=== PATIENT | male | born 1935 | race Caucasian/White ===

== ENCOUNTER 2017-08-10 12:43 | Inpatient (IN) | payer MEDICARE, BC ==
--- NOTE | 2017-07-28 18:22 | HP ---
HISTORY AND PHYSICAL: DATE OF OFFICE VISIT: 07/28/17 DATE OF SURGERY: 08/10/17 ATTENDING SURGEON: Dr. Tavia Lambert * (DICTATED BY ESE DOSHI) PROCEDURE: Right total hip arthroplasty. CHIEF COMPLAINT: Right hip pain. HISTORY OF PRESENT ILLNESS: Mr. Randle is an 82-year-old gentleman with complaints of right hip pain secondary to end-stage osteoarthritis. He has failed conservative management and has elected to proceed with a right total hip arthroplasty, which is scheduled for 08/10/[address] Lambert. PAST MEDICAL HISTORY: Prostate cancer, hypothyroidism, hypertension, anxiety, depression, high cholesterol, dementia, sleep apnea, and a history of hepatitis infection, unknown. PAST SURGICAL HISTORY: Tonsillectomy and surgery for urethral strictures. CURRENT MEDICATIONS: 1. Vitamin D. 2. Levothyroxine 50 mcg daily. 3. Vitamin B 12. 4. Bisoprolol/hydrochlorothiazide 5/6.25 mg daily. ALLERGIES: SULFA antibiotics. FAMILY HISTORY: Diabetes, hypertension, stroke, and Alzheimer's. SOCIAL HISTORY: He is an 82-year-old gentleman who lives with his . He is a retired dentist. He does not smoke, use drugs or alcohol. REVIEW OF SYSTEMS: A complete 14-point review of systems was reviewed with the patient, it is positive for hypothyroidism, history of hepatitis, sleep apnea. He denies history of DVT, PE, HIV or MRSA. PHYSICAL EXAMINATION GENERAL: Well developed, well nourished, in no acute distress. VITAL SIGNS: He stands 5 feet 10 inches tall, weighs 190 pounds. Blood pressure 134/75. His heart rate is 68. HEENT: Normocephalic, atraumatic. NECK: Supple. No palpable lymph nodes. PULMONARY: The lungs are clear to auscultation bilaterally. CARDIAC: Regular rate and rhythm. Strong S1 and S2. ABDOMEN: Soft, nontender, nondistended. MUSCULOSKELETAL: Right lower extremity: The skin is intact. There are no open wounds or abrasions. He walks with an antalgic-type gait, favoring his right leg. He has decreased internal and external rotation of the right hip. He has 2+ dorsalis pedis pulses. His lower extremity muscle group strengths are intact at 5/5 and he has intact sensation. NEUROLOGICAL: Alert and oriented x3. Cranial nerves II thorough XII are intact. ASSESSMENT AND PLAN: Mr. Randle is an 82-year-old gentleman with complaints of right hip pain secondary to end-stage osteoarthritis. He has failed conservative management and has elected to proceed with a right total hip arthroplasty, which is scheduled for 08/10/[address] Lambert discussed the risks and benefits of the surgery at today's visit and all of his questions were answered. Coumadin, Colace, and Percocet were sent to his pharmacy for postoperative pain control and DVT prophylaxis. Following the surgery, he plans to go to [facility] for inpatient rehabilitation and follow up with Dr. Lambert 2 weeks after the surgery. ESE DOSHI [id number]/CPS #: [id number] MTDD
[~2017-08-10 12:43] MED LIST: Buffered Lidocaine 0.9% SYRIN* 5 ML/SYR SYRINGE INTRADERM ONE; Buffered Lidocaine 0.9% SYRIN* 5 ML/SYR SYRINGE ONE; ceFAZolin 2 GM PREMIX (*) 2 GM/50 ML BAG IVPB ONE
[2017-08-10] MEDS ORDERED: Ondansetron TAB* 4 MG PO PRN (14:03)
[2017-08-10] MEDS ORDERED: Bisacodyl SUPP* 10 MG SUPP PR PRN (14:03)
[2017-08-10] MEDS ORDERED: diPHENhydraMINE IV* 50 MG/ML 1 ml VIAL (BENADRYL) IV PRN (14:03)
[2017-08-10] MEDS ORDERED: oxyCODONE/Acetamin 5/325 MG* TAB PO PRN (14:03)
[2017-08-10] MEDS ORDERED: Ondansetron INJ* 2 MG/ML VIAL IV PRN ×2 (14:03→17:28)
[2017-08-10] MEDS ORDERED: oxyCODONE TAB* 5 MG TAB PO PRN (14:03)
[2017-08-10] MEDS ORDERED: Morphine INJ* 2 MG/ML 1 ML SYRINGE (TWO MG - NEW SYRINGE VERSION) IV PRN (14:03)
[2017-08-10] MEDS ORDERED: Polyethylene Glycol 3350* 17 GM PACKET PO PRN (14:03)
[2017-08-10] MEDS ORDERED: fentaNYL* 50 MCG/ML 2 ML VIAL (100 MCG VIAL) ONE (15:10)
[2017-08-10] MEDS ORDERED: Midazolam* 1 MG/ML 2 ML VIAL (2 MG) ONE ×2 (15:10→15:54)
[2017-08-10] MEDS ORDERED: Famotidine IV* 10 MG/ML 2 ML (20 mg) ONE (15:10)
[2017-08-10] MEDS ORDERED: Bupivacaine 0.5% SDV PF* 30 ML VIAL ONE ×2 (15:11→16:17)
[2017-08-10] MEDS ORDERED: Propofol* 10 MG/ML 20 ML BTL IV PUSH ONE (16:45)
[2017-08-10] MEDS ORDERED: EPHEDrine (Pressors)* 50 MG/ML VIAL ONE (16:45)
[2017-08-10] MEDS ORDERED: Phenylephrine IV* 40 MCG/ML 10 ML SYRINGE ONE (16:46)
[2017-08-10] MEDS ORDERED: Lidocaine 2% PF * 5 ML VIAL ONE (16:46)
--- NOTE | 2017-08-10 17:21 | RAD ---
INDICATION: ] Total hyperflexion COMPARISON: June 02, 2017 TECHNIQUE: Crosstable image of the right hip is submitted FINDINGS: The single image obtained for sizing shows placement acetabular cup and the femoral stem for sizing. The remaining bony detail is limited given crosstable lateral technique. IMPRESSION: OPERATIVE CONTROL FILMS SHOW INITIATION OF RIGHT HIP BREATH PLASTY.
[2017-08-10] MEDS ORDERED: PROCHLORPERAZINE INJ 5 MG/ML 2 ML VIAL IV PRN (17:28)
[2017-08-10] MEDS ORDERED: Acetaminophen TAB* 325 MG PO PRN (17:28)
[2017-08-10] MEDS ORDERED: fentaNYL* 50 MCG/ML 2 ML VIAL (100 MCG VIAL) IV PRN (17:28)
--- NOTE | 2017-08-10 18:50 | RAD ---
INDICATION: Postoperative right hip arthroplasty COMPARISON: Right hip June 04, 2017 TECHNIQUE: An AP view of the pelvis and AP views of the hip in neutral and abducted position were obtained FINDINGS: There is interval right hip arthroplasty. The prosthesis appears normally seated. There are soft tissue changes consistent with recent surgery. IMPRESSION: POSTOPERATIVE RIGHT HIP ARTHROPLASTY.
--- NOTE | 2017-08-10 18:51 | RAD ---
INDICATION: Right hip arthroplasty COMPARISON: Right hip same date TECHNIQUE: A single AP view of the pelvis is submitted. FINDINGS: There is right hip arthroplasty. Both acetabula and femoral components appear well seated. The SI joints and symphysis are intact. IMPRESSION: RIGHT HIP ARTHROPLASTY.
[2017-08-10] MEDS ORDERED: Warfarin TAB(*) 6 MG PO ONE (21:15)
[2017-08-10] MEDS: Docusate CAP* 100 MG PO SCH (21:52)
[2017-08-10] MEDS: oxyCODONE/Acetamin 5/325 MG* TAB PO PRN (21:52)
[2017-08-10] MEDS: Magnesium Hydroxide LIQ* 30 ML UDC PO PRN (21:56)
[2017-08-10] MEDS: ceFAZolin 1 GM in Dextrose (*) 1 GM/50 ML BAG IVPB SCH (23:22)
--- NOTE | 2017-08-11 00:25 | CONS ---
CC: Dr. Lambert; Dr. Awad * CONSULTATION REPORT: DATE OF CONSULT: 08/10/17 Requesting Physician: Dr. Lambert Consulting Physician: Dr. Ginger Dunn (dictation provided by Jamila Landa NP) HISTORY OF PRESENT ILLNESS: Mr. Randle is an 82-year-old male with a past medical history of right hip osteoarthritis who presented to the hospital today for a planned right total hip replacement with Dr. Lambert. Please see dictated H and P from ESE Ocampo, for complete details. In brief, this patient had ongoing pain in his right hip and failed conservative measures, therefore opted for a right total hip replacement. In the postoperative period, patient is doing well. Hospital Medicine was contacted for consult of comorbidities. Mr. Randle states that he is doing well and in no pain at this time. PAST MEDICAL HISTORY: 1. Prostate cancer. 2. Hypothyroid. 3. Hypertension. 4. Anxiety. 5. Depression. 6. High cholesterol. 7. Dementia. 8. Sleep apnea. PAST SURGICAL HISTORY: Tonsillectomy and urethral strictures, he had a TURP procedure done in 2013. Cataract left eye, shoulder arthroscopy, right rotator cuff repair and polypectomy of the rectum. MEDICATIONS: 1. Levothyroxine 50 mcg p.o. q.a.m. 2. Bisoprolol and hydrochlorothiazide 1 tablet q.a.m. 3. B12, 1000 mcg capsule q.a.m. 4. Vitamin D3, 2000 units p.o. q.a.m. ALLERGIES: SULFA DRUGS. FAMILY HISTORY: Coronary artery disease with his mother, coronary artery disease with father, diabetes mother, Alzheimer disease father. Cancer with brother, he had leukemia. SOCIAL HISTORY: Former Smoker, Denies alcohol use, Denies drug use. REVIEW OF SYSTEMS: General: No fever, no chills. Cardiac: No chest pain. No edema. Respiratory: No cough, no shortness of breath. GI: No nausea, vomiting, diarrhea or abdominal pain. : No gross hematuria. Neuro: No focal weakness. Eyes: No visual complaints. ENT: No dysphagia. Skin: No rash. Psych: No depression or anxiety. PHYSICAL EXAM: Vital Sings: Temp 96.8, blood pressure was 120/60, heart rate 56, respirations 16, O2 sat is 100% on 3 L O2 via nasal cannula. General: The patient was found resting in his bed. Opened eyes to verbal command. He has no acute distress. Denies any pain at this time. Mr. Randle is confused to time. He is alert and oriented to person and place. He is able to move his upper extremities, has minimal movement of lower extremities due to the spinal he had for his surgery. Eyes: Extraocular movements are intact. Heart: S1, S2 , no murmurs, rubs, gallops and is regular rhythm. Lungs: Clear throughout to auscultation. No accessory muscle use. Abdomen: Soft, nontender, bowel sounds positive x4. Extremities: Pedal pulses +2 bilaterally. No cyanosis or edema. Skin: Intact. DIAGNOSTIC STUDIES/LAB DATA: Preoperative labs were drawn on 07/28/17. Sodium is 135, potassium is 4.5, chloride is 99, BUN is 19, creatinine is 1.0. Glucose was 103, calcium is 10.3, TSH was 1.39, iron was 33, ferritin was 203.9. WBC 10.3, hemoglobin was 14.9, hematocrit of 43, platelet count was 390, 000. IMPRESSION AND PLAN: Mr. Randle is an 82-year-old male with a past medical history of prostate cancer, hypothyroid, hypertension, anxiety, depression, high cholesterol, dementia, sleep apnea who presented today to the hospital for a planned right total hip replacement. In the immediate postoperative period, he has no complaints and is doing well. Our recommendations are as follows: 1. Status post right total hip replacement: Management, we will leave to Ortho. 2. Hypothyroid: We will continue his levothyroxine at 50 mcg p.o. q.a.m. We will restart that in the a.m. 3. Hypertension: We will hold his hydrochlorothiazide at this time. Will order just the beta tamia. 4. Anxiety: We will continue to monitor. 5. Depression: Continue to monitor. 6. Dementia: Family has requested to stay with the patient during the night. Nursing staff has been advised that this is okay due to the fact that patient in 2003 had an exacerbation of dementia after his TURP procedure, where he became severely confused and disoriented. Will also hold Benadryl. 7. Sleep apnea: We will monitor pulse ox 24 hours a day. 8. DVT prophylaxis: Per Ortho. 9. Code status: The patient is a DNR/DNI. TIME SPENT: Approximately 45 minutes was spent in the consultation of this patient. More than half the time was spent with the patient and family at the bedside discussing plan during hospitalization, performing physical exam and reviewing my plan of care. JAMILA LANDA, WIL [id number]/CPS #: [id number] GENI
[2017-08-11] MEDS: oxyCODONE/Acetamin 5/325 MG* TAB PO PRN (02:56)
--- NOTE | 2017-08-11 05:31 | OP ---
OPERATIVE REPORT: DATE OF OPERATION: 08/10/17 DATE OF : 33 SURGEON: Tavia Lambert MD CONVE[employer]OR [employer]: ESE Nesbitt Ms. Leyva did help throughout the procedure with preparation of the leg, wound retraction, manipula tion of the hip, and wound closure. ANESTHESIOLOGIST: Alisson Sadler MD ANESTHESIA: Spinal. PRE-OP DIAGNOSIS: Severe end-stage degenerative osteoarthritis of the right hip joint. POST-OP DIAGNOSIS: Severe end-stage degenerative osteoarthritis of the right hip joint. OPERATIVE PROCEDURE: Right total hip arthroplasty. INDICATIONS: Mr. Randle is an 82-year-old gentleman with years of increasingly severe right hip pain. Radiograph showed [id number] arthritis. He failed conservative treatment with antiinflammatories , pain medication, ambulatory assistive devices, and physical therapy. Due to continued pain and dec reased quality of life, the patient has elected to proceed with right total hip arthroplasty. Informed consent was obtained from the patient and his . They understood the risks of the proced ure included, but were not limited to, bleeding, infection, damage to nearby structures, continued pa in, need for further surgery, intraoperative fracture, nerve palsy, hardware failure or loosening, di slocation, leg length discrepancy, stroke, heart attack, blood clot, and . They wished to proce ed. HARDWARE USED: This is a uncemented Maurilio total hip arthroplasty hardware. For the cup, a Tritani um cluster hole shell 54E with a single 20-mm and single 25-mm cancellous bone screw. For the liner, an MDM cementless liner 42E. For the stem, an Accolade TMZF size 4.5 with 127-degree neck. For the head, a Biolox delta ceramic V40 femoral head 28, -2.7 and for the insert, a mormonism MDM X3 inse rt 28/48/42E. ESTIMATED BLOOD LOSS: 400 cc. COMPLICATIONS: None. SPECIMEN: Femoral head and acetabular reaming sent to Pathology. INTRAOPERATIVE FINDINGS: Intraoperatively, the patient was noted to have severe end-stage arthritis with full-thickness loss of cartilage along the femoral head and acetabulum. Significant osteophyte formation was noted. DESCRIPTION OF PROCEDURE: Mr. Randle was identified in the preanesthesia unit. His right lower extre mity was marked as the correct operative side. Informed consent was signed and placed in the chart. The patient was taken to the operating room and placed under spinal anesthesia. A Alvarado catheter wa s placed. The patient was placed in the left lateral decubitus position on the pegboard. All bony p rominences were well padded. The right lower extremity was prepped and draped in the usual sterile f ashion. Preop time-out was made to correctly identify the patient's side and site. Appropriate shannon operative antibiotics were given within 1 hour of incision. A 14-cm posterior hip incision was made with a 10 blade and carried down to the lateral fascial layer . The lateral fascial layer was then incised in line with skin incision. Charnley retractor was celine sam. The piriformis and conjoint tendons were identified. These were elevated off the posterolatera l femur using electrocautery. These were tagged with #5 Ethibond's. Next, electrocautery was used t o make a standard posterolateral capsular flap. This was also tagged to #5 Ethibond's. The hip was carefully dislocated. Lesser troch to center of the femoral head measured 62 mm. Oscillating saw wa s used to make the appropriate femoral neck cut. The femoral head was sent to Pathology. The femur was carefully retracted anteriorly. After appropriate placement of retractors, the acetabu lum was easily visualized. A long-handled knife was used to sharply remove any remaining labrum from the acetabular rim. The acetabulum was sequentially reamed up to a size 53. Good subchondral bleed ing bone bed was obtained. A 53 trial had excellent fit. Final implant chosen was a Tritanium clust er hole shell 54E. This was impacted into the acetabulum without difficulty. Excellent stability was obtained. Appropriate anteversion and abduction angle were obtained. A single 20-mm and a single 2 5-mm cancellous bone screw were placed in the superior posterior quadrant for extra stability. An MD Chavez liner 42E was chosen. This was impacted into the acetabulum without difficulty. Stability of the l iner was checked and rechecked and noted to be stable. Next, attention was turned to preparation of the femur. A canal finder was used to enter the proxima l femur. Femoral canal was sequentially broached up to a size 4.5. A 4.5 broach had excellent fit a nd appropriate anteversion. A 127 neck trial as well as a 28, -2.7 head trial was chosen. Lesser tr och to center of the femoral head measured 65 mm. The hip was reduced and taken through a range of m otion. The hip was stable in all positions. Leg lengths and soft tissue tension were deemed to be a ppropriate. The hip was carefully dislocated. All trials were carefully removed. Final implant chosen for the f emoral stem was an Accolade TMZF size 4.5 with a 127-degree neck. This was impacted into the femoral canal without difficulty. Excellent stability was obtained. A Biolox delta ceramic V40 femoral head 28, -2.7 was chosen as the final implant as well as the annie ration [facility] 28/48/42E. Femoral head and insert were prepared on the side table appropriately and impa cted on to the femoral neck without difficulty. Lesser troch to center of the femoral head measured 64 mm. The hip was reduced and taken through range of motion. The hip was stable in all positions. The hip was copiously irrigated with sterile saline. Previously tagged tendons and capsule were reap proximated to the posterolateral femur through 2 trochanteric drill holes. The lateral fascial layer was closed using interrupted #1 Vicryl's. The rest of the incision was closed using 0 and 2-0 Vicryl 's. Skin was closed using running 3-0 Monocryl and Dermabond. Sterile Adaptic, 4x4's, and paper tap e were placed over the incision. The patient's anesthesia was reversed without difficulty. He was taken to the PACU in stable conditi on. Intended weightbearing will be weightbearing as tolerated with posterior hip precautions. Inten ded DVT prophylaxis will be Coumadin with a Lovenox bridge. [id number]/[facility] #: [id number]
[2017-08-11 06:19] LABS: Hematocrit 32 % (42-52); Hemoglobin 11.2 g/dl (14.0-18.0)
[2017-08-11] MEDS: Levothyroxine TAB* 50 MCG TAB PO SCH (06:20)
[2017-08-11 06:23] LABS: BUN/Creatinine Ratio 18.8 (8-20); Calcium 8.6 mg/dL (8.6-10.3); EGFR African American 96.2 (>60); EGFR Non-African American 74.8 (>60); Potassium 4.1 mmol/L (3.5-5.0)
[2017-08-11] MEDS: ceFAZolin 1 GM in Dextrose (*) 1 GM/50 ML BAG IVPB SCH ×2 (07:35→15:03)
--- NOTE | 2017-08-11 08:28 | PN ---
Progress Note - Progress Note Date of Service: 08/11/17 SOAP: Subjective: []Patient seen OOB with physical therapy. Dementia at baseline. and daughter are present. helps to confirm MOLST form which is unchanged from previous. Pain of operative site is as severe as 7/10, tolerating currently. No chest pain, shortness of breath, dizziness, nausea or leg numbness. Objective: [] Vital Signs Temp 98.0 F 08/11/17 07:25 Pulse 87 08/11/17 07:25 Resp 18 08/11/17 08:00 BP 115/65 08/11/17 07:25 Pulse Ox 95 08/11/17 08:20 Intake & Output 08/10/17 08/11/17 08/11/17 18:59 06:59 18:59 Intake Total 2400 665 980 Output Total 200 775 Balance 2200 -110 980 Weight 189 lb 9.6 oz 189 lb 9.6 oz Intake: IV Fluids 2400 205 980 ABX - CEFAZOLIN 55 980 LR 2400 150 Oral 460 Output: Alvarado 200 775 Other: Estimated Blood Loss 400 Comment Laboratory Last Values Hgb 11.2 g/dl (14.0-18.0) L 08/11/17 05:26 Hct 32 % (42-52) L 08/11/17 05:26 INR (Anticoag Therapy) 0.93 (0.89-1.11) 08/11/17 05:26 Sodium 134 mmol/L (133-145) 08/11/17 05:26 Potassium 4.1 mmol/L (3.5-5.0) 08/11/17 05:26 Chloride 101 mmol/L (101-111) 08/11/17 05:26 Carbon Dioxide 26 mmol/L (22-32) 08/11/17 05:26 Anion Gap 7 mmol/L (2-11) 08/11/17 05:26 BUN 18 mg/dL (6-24) 08/11/17 05:26 Creatinine 0.96 mg/dL (0.67-1.17) 08/11/17 05:26 Est GFR ( Amer) 96.2 (>60) 08/11/17 05:26 Est GFR (Non-Af Amer) 74.8 (>60) 08/11/17 05:26 BUN/Creatinine Ratio 18.8 (8-20) 08/11/17 05:26 Glucose 165 mg/dL (70-100) H 08/11/17 05:26 Calcium 8.6 mg/dL (8.6-10.3) 08/11/17 05:26 General: Well appearing, NAD. RLE: Dressing CDI BL LE: Calves supple and nontender without erythema, edema or palpable cords. DF /PF intact. DP/PT pulses 2+. Sensation intact distally. Pupils are noted to be asymmetric. Assessment: []POD 1 s/p Right total hip arthroplasty 08/10 Dr Lambert Plan: []WBAT PT/OT Lovenox/ Coumadin 6 mg today Patient gets out of bed on his own but is cooperative with his for redirection. Asymmetric pupils- baseline per who called professor of kinesiology to confirm.
[2017-08-11] MEDS ORDERED: BISOPROLOL PO SCH (09:00)
[2017-08-11] MEDS ORDERED: HYDROCHLOROTHIAZI PO SCH (09:00)
[2017-08-11] MEDS: Docusate CAP* 100 MG PO SCH ×2 (09:28→20:55)
[2017-08-11] MEDS: Bisoprolol TAB* 5 MG PO SCH (09:28)
[2017-08-11] MEDS: Acetaminophen TAB* 325 MG PO PRN ×2 (13:00→20:55)
[2017-08-11] MEDS ORDERED: Enoxaparin(*) 30 MG/0.3 ML SYR SUBCUT SCH (15:00)
[2017-08-11] MEDS ORDERED: Warfarin TAB(*) 6 MG PO SCH (17:00)
--- NOTE | 2017-08-11 17:35 | PN ---
Subjective Date of Service: 08/11/17 Interval History: Patient seen and examined at bedside. Patient oriented to self and place only. He reports pain but offers no other complaints. Family History: Unchanged from Admission Social History: Unchanged from Admission Past Medical History: Unchanged from Admission Objective Active Medications: Acetaminophen (Tylenol Tab*) 650 mg PO Q4H PRN Bisacodyl (Dulcolax Supp*) 10 mg MI DAILY PRN Bisoprolol Fumarate (Zebeta Tab*) 5 mg PO DAILY RAFAEL Docusate Sodium (Colace Cap*) 100 mg PO BID RAFAEL Enoxaparin Sodium (Lovenox(*)) 30 mg SUBCUT Q24H RAFAEL Lactated Ringer's (Lactated Ringers 1000 Ml Bag*) 1,000 mls @ 100 mls/hr IV PER RATE RAFAEL Lactulose (Lactulose*) 30 ml PO Q6H PRN Levothyroxine Sodium (Synthroid Tab*) 50 mcg PO 0600 RAFAEL Magnesium Hydroxide (Milk Of Magnesia Liq*) 30 ml PO Q6H PRN Morphine Sulfate (Morphine Inj (Syringe)*) 2 mg IV Q2H PRN Ondansetron HCl (Zofran Inj*) 4 mg IV Q6H PRN Ondansetron HCl (Zofran Tab*) 4 mg PO Q6H PRN Oxycodone HCl (Roxycodone Tab*) 10 mg PO Q4H PRN Oxycodone/Acetaminophen (Percocet 5/325 Tab*) 1 tab PO Q4H PRN Oxycodone/Acetaminophen (Percocet 5/325 Tab*) 2 tab PO Q4H PRN Pharmacy Profile Note (Coumadin Daily Reminder*) 1 note FOLLOW UP 1700 [facility] Polyethylene Glycol/Electrolytes (Miralax*) 17 gm PO DAILY PRN Vital Signs Temp Pulse Resp BP Pulse Ox 97.9 F 70 15 140/72 98 08/11/17 16:14 08/11/17 16:14 08/11/17 16:14 08/11/17 16:14 08/11/17 15:55 Oxygen Devices in Use Now: None Appearance: sitting up in bed, NAD Eyes: No Scleral Icterus, PERRLA Ears/Nose/Mouth/Throat: NL Teeth, Lips, Gums Neck: NL Appearance and Movements; NL JVP Respiratory: Symmetrical Chest Expansion and Respiratory Effort, Clear to Auscultation Cardiovascular: NL Sounds; No Murmurs; No JVD, RRR Abdominal: NL Sounds; No Tenderness; No Distention Skin: No Rash or Ulcers Neurological: NL Muscle Strength and Tone, - - alert and oriented to self Lines/Tubes/Other Access: Clean, Dry and Intact Peripheral IV Nutrition: Taking PO's Result Diagrams: 08/11/17 05:26 08/11/17 05:26 Assess/Plan/Problems-Billing Pt is an 82 y/o male w/ PMH HTN, hypothyroidism who underwent an elective right total hip replacement with Dr. Lambert. Hospitalists were asked to assist with the co-management of the patient's comorbidities. - Patient Problems (1) Status post total hip replacement, right Comment: Management per orthopedic surgery. Pain control. Hb stable. Try to limit narcotics. (2) HTN (hypertension) Comment: BP meds held for now. Restart when systolic > 130 (3) Hypothyroidism Comment: Continue Synthroid. (4) Dementia Comment: Supportive care. (5) DVT prophylaxis Comment: Warfarin and lovenox (6) Full code status Status and Disposition: Inpatient for left total hip replacement. Dispo per ortho.
[2017-08-12] MEDS: Levothyroxine TAB* 50 MCG TAB PO SCH (05:40)
[2017-08-12 05:44] LABS: Hematocrit 30 % (42-52); Hemoglobin 10.5 g/dl (14.0-18.0)
[2017-08-12] MEDS: Acetaminophen TAB* 325 MG PO PRN ×3 (07:26→21:17)
--- NOTE | 2017-08-12 08:39 | PN ---
Progress Note - Progress Note Date of Service: 08/12/17 SOAP: Subjective: []Patient seen at bedside. His daughter accompanies him. He denies pain at surgical site. Denies dizziness, chest pain, shortness of breath or nausea. Objective: [] Vital Signs Temp 97.8 F 08/12/17 07:33 Pulse 83 08/12/17 07:33 Resp 16 08/12/17 07:57 BP 123/64 08/12/17 07:33 Pulse Ox 95 08/12/17 07:57 Intake & Output 08/11/17 08/12/17 08/12/17 18:59 06:59 18:59 Intake Total 2752 640 443 Output Total 375 1525 350 Balance 2377 -885 93 Intake: IV Fluids 2051 323 ABX - CEFAZOLIN 1090 LR 962 323 Oral 700 640 120 Output: Urine 375 1525 350 Other: # Bowel Movements 0 # Voids 1 Laboratory Last Values Hgb 10.5 g/dl (14.0-18.0) L 08/12/17 05:38 Hct 30 % (42-52) L 08/12/17 05:38 INR (Anticoag Therapy) 1.92 (0.89-1.11) H 08/12/17 05:38 Sodium 134 mmol/L (133-145) 08/11/17 05:26 Potassium 4.1 mmol/L (3.5-5.0) 08/11/17 05:26 Chloride 101 mmol/L (101-111) 08/11/17 05:26 Carbon Dioxide 26 mmol/L (22-32) 08/11/17 05:26 Anion Gap 7 mmol/L (2-11) 08/11/17 05:26 BUN 18 mg/dL (6-24) 08/11/17 05:26 Creatinine 0.96 mg/dL (0.67-1.17) 08/11/17 05:26 Est GFR ( Amer) 96.2 (>60) 08/11/17 05:26 Est GFR (Non-Af Amer) 74.8 (>60) 08/11/17 05:26 BUN/Creatinine Ratio 18.8 (8-20) 08/11/17 05:26 Glucose 165 mg/dL (70-100) H 08/11/17 05:26 Calcium 8.6 mg/dL (8.6-10.3) 08/11/17 05:26 General: Well appearing, NAD. Cooperative, communicates appropriately with me RLE: Dressing changed. Incision CDI without surrounding erythema or edema. BL LE: Calves supple and nontender without erythema, edema or palpable cords. DF /PF intact. DP/PT pulses 2+. Sensation intact distally. Assessment: []POD 2 s/p Right total hip arthroplasty 08/10 Dr Lambert Plan: [WBAT PT/OT stop lovenox, 2 mg coumadin Plan for Messi JONES 08/13/17
[2017-08-12] MEDS: Docusate CAP* 100 MG PO SCH ×2 (09:53→21:17)
[2017-08-12] MEDS: Magnesium Hydroxide LIQ* 30 ML UDC PO PRN ×2 (09:53→21:17)
[2017-08-12] MEDS: Bisoprolol TAB* 5 MG PO SCH (09:54)
--- NOTE | 2017-08-12 14:09 | PN ---
Subjective Date of Service: 08/12/17 Interval History: Patient seen and examined at bedside. Patient remains confused and oriented to self and place only. BP controlled without medications. Family History: Unchanged from Admission Social History: Unchanged from Admission Past Medical History: Unchanged from Admission Objective Active Medications: Acetaminophen (Tylenol Tab*) 650 mg PO Q4H PRN Bisacodyl (Dulcolax Supp*) 10 mg [place] DAILY PRN Bisoprolol Fumarate (Zebeta Tab*) 5 mg PO DAILY RAFAEL Docusate Sodium (Colace Cap*) 100 mg PO BID RAFAEL Lactated Ringer's (Lactated Ringers 1000 Ml Bag*) 1,000 mls @ 100 mls/hr IV PER RATE RAFAEL Lactulose (Lactulose*) 30 ml PO Q6H PRN Levothyroxine Sodium (Synthroid Tab*) 50 mcg PO 0600 RAFAEL Magnesium Hydroxide (Milk Of Magnesia Liq*) 30 ml PO Q6H PRN Morphine Sulfate (Morphine Inj (Syringe)*) 2 mg IV Q2H PRN Ondansetron HCl (Zofran Inj*) 4 mg IV Q6H PRN Ondansetron HCl (Zofran Tab*) 4 mg PO Q6H PRN Oxycodone HCl (Roxycodone Tab*) 10 mg PO Q4H PRN Oxycodone/Acetaminophen (Percocet 5/325 Tab*) 1 tab PO Q4H PRN Oxycodone/Acetaminophen (Percocet 5/325 Tab*) 2 tab PO Q4H PRN Pharmacy Profile Note (Coumadin Daily Reminder*) 1 note FOLLOW UP 1700 [facility] Polyethylene Glycol/Electrolytes (Miralax*) 17 gm PO DAILY PRN Warfarin Sodium (Coumadin Tab(*)) 2 mg PO ONCE@1700 ONE Vital Signs Temp Pulse Resp BP Pulse Ox 97.2 F 81 16 110/50 99 08/12/17 11:52 08/12/17 11:52 08/12/17 11:52 08/12/17 11:52 08/12/17 11:52 Oxygen Devices in Use Now: None Appearance: sitting up in bed, NAD Eyes: No Scleral Icterus, PERRLA Ears/Nose/Mouth/Throat: NL Teeth, Lips, Gums Neck: NL Appearance and Movements; NL JVP Respiratory: Symmetrical Chest Expansion and Respiratory Effort, Clear to Auscultation Cardiovascular: NL Sounds; No Murmurs; No JVD, RRR Extremities: No Edema Skin: - - right hip incision C/D/I Neurological: NL Muscle Strength and Tone, - - alert and oriented to self and place only Lines/Tubes/Other Access: Clean, Dry and Intact Peripheral IV Nutrition: Taking PO's Result Diagrams: 08/12/17 05:38 08/11/17 05:26 Assess/Plan/Problems-Billing Pt is an 82 y/o male w/ PMH HTN, hypothyroidism who underwent an elective right total hip replacement with Dr. Lambert. Hospitalists were asked to assist with the co-management of the patient's comorbidities. - Patient Problems (1) Status post total hip replacement, right Comment: Management per orthopedic surgery. Pain control. Hb stable. Try to limit narcotics. (2) HTN (hypertension) Comment: Bisoprolol continues but HCTZ held. (3) Hypothyroidism Comment: Continue Synthroid. (4) Dementia Comment: Supportive care. (5) DVT prophylaxis Comment: Warfarin and lovenox (6) Full code status Status and Disposition: Inpatient for left total hip replacement. Plan for discharge to [facility] in the AM. OK to restart home HCTZ at discharge. Will sign off for now. Please call with any further questions.
[2017-08-12] MEDS ORDERED: Warfarin TAB(*) 2 MG PO ONE (17:00)
[2017-08-13 05:35] LABS: Hematocrit 29 % (42-52); Hemoglobin 10.1 g/dl (14.0-18.0)
[2017-08-13] MEDS: Acetaminophen TAB* 325 MG PO PRN ×2 (06:00→12:05)
[2017-08-13] MEDS: Levothyroxine TAB* 50 MCG TAB PO SCH (06:00)
[2017-08-13 08:27] VITALS: BP 126/54
[2017-08-13] MEDS: Docusate CAP* 100 MG PO SCH (08:27)
[2017-08-13] MEDS: Bisoprolol TAB* 5 MG PO SCH (08:27)
--- NOTE | 2017-08-13 08:36 | PN ---
Progress Note - Progress Note Date of Service: 08/13/17 SOAP: Subjective: 82 y/o male s/p R OSMAN 08/[address] Lambert. VSS afebrile overnight. Resting comfortably in bed, answers questions, no pain. daughter at bedside, eager for D /C today Objective: General- Well appearing, NAD resting comfortably, NAD MSK- surgical dressing removed, incision c/d/i, minimal drainage, no induration, + DF/PF b/l, PT 2+ b/l, mild edema b/l LEs, non-pitting, neg homans b/l, new dressing placed. Vital Signs Temp 98.2 F 08/13/17 07:42 Pulse 70 08/13/17 07:42 Resp 16 08/13/17 08:00 BP 126/54 08/13/17 07:42 Pulse Ox 97 08/13/17 07:42 Intake & Output 08/12/17 08/13/17 08/13/17 18:59 06:59 18:59 Intake Total 1343 425 Output Total 1150 1000 600 Balance 193 -575 -600 Intake: IV Fluids 323 LR 323 Oral 1020 425 Output: Urine 1150 1000 600 Other: Estimated Void Medium # Bowel Movements 0 # Voids 1 Assessment: Stable 82 y/o male s/p R OSMAN 08/[address] Lambert. Plan: - D/C. to [place] today - INR theraputic, continue coumadin as outpatient - Continue PT/OT - pain regimen- tylenol for baseline, oxycodone as needed for increased pain, use sparingly - Follow up with DR. Lambert within 10-12 days Active Medications Generic Name Dose Route Start Last Admin Trade Name Freq PRN Reason Stop Dose Admin Acetaminophen 650 mg 08/10/17 14:03 08/13/17 12:05 Tylenol Tab* PO 650 mg Q4H PRN Administration PAIN OR TEMPERATURE Bisacodyl 10 mg 08/10/17 14:03 Dulcolax Supp* [place] DAILY PRN constipation Bisoprolol Fumarate 5 mg 08/11/17 09:00 08/13/17 08:27 Zebeta Tab* PO 5 mg DAILY RAFAEL Administration Docusate Sodium 100 mg 08/10/17 21:00 08/13/17 08:27 Colace Cap* PO 100 mg BID RAFAEL Administration Lactated Ringer's 1,000 mls @ 100 mls/hr 08/10/17 15:00 08/12/17 04:01 Lactated Ringers 1000 Ml Bag* IV 100 mls/hr PER RATE RAFAEL Administration Lactulose 30 ml 08/10/17 14:03 08/12/17 17:04 Lactulose* PO 30 ml Q6H PRN Administration constipation Levothyroxine Sodium 50 mcg 08/11/17 06:00 08/13/17 06:00 Synthroid Tab* PO 50 mcg 0600 RAFAEL Administration Magnesium Hydroxide 30 ml 08/10/17 14:03 08/12/17 21:17 Milk Of Magnesia Liq* PO 30 ml Q6H PRN Administration constipation Morphine Sulfate 2 mg 08/10/17 14:03 08/10/17 23:18 Morphine Inj (Syringe)* IV 2 mg Q2H PRN Administration PAIN Ondansetron HCl 4 mg 08/10/17 14:03 Zofran Inj* IV Q6H PRN nausea Ondansetron HCl 4 mg 08/10/17 14:03 Zofran Tab* PO Q6H PRN NAUSEA Oxycodone HCl 10 mg 08/10/17 14:03 Roxycodone Tab* PO Q4H PRN SEVERE PAIN Oxycodone/Acetaminophen 1 tab 08/10/17 14:03 08/11/17 07:54 Percocet 5/325 Tab* PO 1 tab Q4H PRN Administration PAIN Oxycodone/Acetaminophen 2 tab 08/10/17 14:03 08/11/17 02:56 Percocet 5/325 Tab* PO 2 tab Q4H PRN Administration PAIN Pharmacy Profile Note 1 note 08/11/17 17:00 08/12/17 17:05 Coumadin Daily Reminder* FOLLOW UP 1 note 1700 RAFAEL Administration Polyethylene Glycol/Electrolytes 17 gm 08/10/17 14:03 Miralax* PO DAILY PRN Constipation
--- NOTE | 2017-08-13 12:06 | DS ---
AMENDED REPORT NOW INCLUDES COSIGNER DESIGNATION - ESIGNED BEFORE ADJUSTMENT DISCHARGE SUMMARY: DATE OF ADMISSION: 08/10/17 DATE OF DISCHARGE: 08/13/17. ATTENDING PHYSICIAN: Tavia Lambert MD * (DICTATED BY ESE FRIEND) CHIEF COMPLAINTS: 1. Right hip pain. 2. Prostate cancer. 3. Hypothyroidism. 4. Hypertension. 5. Anxiety. 6. Depression. 7. Elevated cholesterol. 8. History of dementia. 9. Sleep apnea. 10. History of hepatitis infection, unknown. DISCHARGE DIAGNOSES: 1. Status post right total hip arthroplasty. 2. Prostate cancer. 3. Hypothyroidism. 4. Hypertension. 5. Anxiety. 6. History of depression. 7. Elevated cholesterol. 8. History of dementia. 9. Obstructive sleep apnea. 10. History of hepatitis infection. PROCEDURE: Right total hip arthroplasty. CONSULTATIONS: 1. Physical Therapy. 2. Occupational Therapy. 3. Hospitalist. HISTORY: Mr. 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 Tavia Lambert. HOSPITAL COURSE: The patient was admitted to [facility] on 08/10/17 where he underwent a right total hip arthroplasty, which was uncomplicated. Postoperatively, he recovered on the surgical short-stay unit. On postoperative day 2, his Alvarado was removed and he was voiding without difficulty on his own. He advanced to a regular diet and his pain was controlled with p.o. Tylenol with intermittent dosage of Percocet. His labs and vital signs remained stable. He was able to weight bear as tolerated on the right lower extremity and did well with physical therapy. His DVT prophylaxis was managed with Lovenox and Coumadin until he reached therapeutic INR. By postoperative day 3, he was orthopedically and medically stable for discharge to go to [facility]. PHYSICAL EXAMINATION: General: Well appearing, no acute distress, alert and oriented. Resting comfortably in bed. Vital Signs: On the date of discharge, temperature of 98.2, pulse rate is 70, respirations 16, oxygen saturation 97% on room air with a blood pressure of 126/54. Examination of the right lower extremity demonstrates surgical incision on the right hip, which is clean, dry, and intact with no signs of erythema, drainage. The dry dressing was placed over top. The patient had positive ankle dorsiflexion and plantar flexion bilaterally with 2+ palpable posterior tibial pulses, minimal edema on the left lower extremity. Negative Homans' sign bilaterally. LABORATORY DATA: On date of discharge include an H and H of 10.1 and with a INR of 2.62. RADIOGRAPHS: Postoperative films of the right hip show a right hip arthroplasty in correct positioning. DISCHARGE MEDICATIONS: 1. Coumadin 2 mg tablets p.o. daily at 5 p.m. per physician's instructions. 2. Acetaminophen 650 mg p.o. q. 4 hours, not to exceed 4000 mg in a 24-hour period. 3. Colace 100 mg p.o. b.i.d. 4. Levothyroxine 50 mcg p.o. q. a.m. 5. Oxycodone 5 mg tablet p.o. q. 4 hours p.r.n. for severe pain, please use sparingly. 6. Bisoprolol and hydrochlorothiazide 1 tablet p.o. q. a.m. 7. Cyanocobalamin 1000 mcg p.o. q. a.m. 8. Vitamin D3 2000 international units p.o. q.a.m. CONDITION ON DISCHARGE: Stable. DISCHARGE INSTRUCTIONS: Mr. Randle is a very pleasant 82-year-old gentleman, postoperative day 3, status post right total hip arthroplasty, which was uncomplicated. He is orthopedically and medically stable for discharge to go home with home services. His labs and vital signs are stable. He was restarted on his home medications. He will hold his Coumadin dose for tonight, take 2 mg on Wednesday night, 4 mg on Wednesday night, and have a repeat INR check on Wednesday. He will have INR draws on Wednesday and [facility]. He will be weightbearing as tolerated in the right lower extremity. He will have his wound checked on a daily basis for any drainage or erythema. He will take Tylenol every 4 to 6 hours as needed for pain control and will take oxycodone 5 mg sparingly as needed for severe pain control. He will take Colace up to 3 times a day for constipation and should have a bowel motion every 48 hours. He will follow up with Dr. Fausto in approximately 10 to 14 days for incision check and suture removal. He was instructed to go to the ER should he develop chest pain or shortness of breath. Should he develop fever, increasing pain, redness, or concerns about the incision, he is to call the office immediately. ESE FRIEND [id number]/[facility] #: [id number] GENI
== END 2017-08-13 13:35 | DRG 470 ==
LOC: AA 12:43 → SSU 20:38
PROVIDERS: ADMIT Orthopaedic Surgery Adult Reconstructive Orthopaedic Surgery; ATTEND Orthopaedic Surgery Adult Reconstructive Orthopaedic Surgery
PROC: 0SR903A Replacement of Right Hip Joint with Ceramic Synthetic Substitute, Uncemented, Open Approach (ICD-10-PCS; principal; 2017-08-10 15:00)
DX: M16.11 Unilateral primary osteoarthritis, right hip (principal); C79.9 Secondary malignant neoplasm of unspecified site; C61 Malignant neoplasm of prostate; F03.90 Unspecified dementia, unspecified severity, without behavioral disturbance, psychotic disturbance, mood disturbance, and anxiety; E03.9 Hypothyroidism, unspecified; I10 Essential (primary) hypertension; F41.9 Anxiety disorder, unspecified; F32.9 Major depressive disorder, single episode, unspecified; E78.00 Pure hypercholesterolemia, unspecified; Z66 Do not resuscitate; M25.751 Osteophyte, right hip; G47.30 Sleep apnea, unspecified; Z86.19 Personal history of other infectious and parasitic diseases; Z88.2 Allergy status to sulfonamides; Z83.3 Family history of diabetes mellitus; Z82.49 Family history of ischemic heart disease and other diseases of the circulatory system; Z82.3 Family history of stroke; Z82.0 Family history of epilepsy and other diseases of the nervous system; Z98.41 Cataract extraction status, right eye; Z80.6 Family history of leukemia; Z87.891 Personal history of nicotine dependence; Z79.01 Long term (current) use of anticoagulants
CPT/HCPCS: 36415; 72170; 80048; 85014; 85018; 85610; 88304; 88311; A9270-GY; C1713; C1776; J0690; J1650; J2250; J2270; J2704; J3010

== ENCOUNTER 2020-05-19 13:18 | Inpatient (IN) ==
[2020-05-19] MEDS ORDERED: NS 0.9% 1000 ml BAG 1,000 ML IV ONE (13:33)
[2020-05-19] MEDS ORDERED: Levofloxacin 750 MG IVPREMIX 750 MG/150 ML BAG IVPB ONE (13:46)
[2020-05-19 14:06] LABS: ABS Basophils 0.1 10^3/ul (0-0.2); ABS Lymphocytes 1.4 10^3/ul (1.0-4.8); ABS Monocytes 0.6 10^3/ul (0-0.8); ABS Neutrophils 9.8 10^3/ul (1.5-7.7); Eosinophil % 0.2 %; Hematocrit 36 % (42-52); Hemoglobin 12.1 g/dL (14.0-18.0); Lymphocyte % 11.9 %; Mean Corpuscular HGB Conc 34 g/dL (31-36); Mean Corpuscular Hemoglobin 29 pg (27-31); Mean Corpuscular Volume 86 fL (80-94); Mean Platelet Volume 7.2 fL (7.4-10.4); Platelet Count 473 10^3/uL (150-450); Red Blood Count 4.18 10^6 /uL (4.18-5.48); Red Cell Distribution Width 14 % (10-15); White Blood Count 11.8 10^3/uL (3.5-10.8)
[2020-05-19 14:21] LABS: INR 1.01 (0.82-1.09)
[2020-05-19 14:25] LABS: ALT 20 U/L (7-52); AST 29 U/L (13-39); Albumin 3.8 g/dL (3.2-5.2); Albumin/Globulin Ratio 1.4 (1-3); Alkaline Phosphatase 90 U/L (34-104); Anion Gap 11 mmol/L (2-11); BUN/Creatinine Ratio 15.7 (8-20); Blood Urea Nitrogen 18 mg/dL (6-24); C Reactive Protein 9.89 mg/L (<8.01); CO2 Carbon Dioxide 21 mmol/L (22-32); Calcium 9.5 mg/dL (8.6-10.3); Chloride 104 mmol/L (101-111); EGFR Non-African American 60.3 (>60); Globulin 2.7 g/dL (2-4); Glucose 167 mg/dL (70-100); Potassium 3.9 mmol/L (3.5-5.0); Sodium 136 mmol/L (135-145); Total Protein 6.5 g/dL (6.4-8.9)
[2020-05-19] MEDS ORDERED: Furosemide 40 mg/4 ml IV VIAL IV SLOW PU ONE (14:51)
[2020-05-19 14:59] LABS: Influenza A Molecular Negative (Negative); Influenza B Molecular Negative (Negative)
[2020-05-19] MEDS ORDERED: Albuterol/Ipratropium NEB.SOL (2.5/0.5 MG) 3 ML NEB.SOLN INH PRN (16:53)
[2020-05-19] MEDS ORDERED: Morphine 2 MG/ML SYRINGE IV PRN (16:53)
[2020-05-19] MEDS ORDERED: Al Hydrox/Mg Hydrox/Simet LIQ 30 ML UDC PO PRN (16:53)
[2020-05-19] MEDS ORDERED: Potassium Chloride LIQUID 20 MEQ/15 ML LIQUID PO ONE (17:03)
[2020-05-19] MEDS ORDERED: Nitro 2% OINT (Nitroglycerin) 1 INCH/PAK TOPICAL ONE (17:05)
[2020-05-19] MEDS ORDERED: Heparin DRIP 25,000 UNITS BAG 25,000 UNITS/500 ML BAG IV SCH (17:15)
[2020-05-19 17:23] LABS: Cholesterol 253 mg/dL; Creatine Kinase 166 U/L (10-223); HDL Cholesterol 47.7 mg/dL; LDL Cholesterol 167 mg/dL; Triglycerides 192 mg/dL
[2020-05-19 17:35] LABS: Troponin I 2.06 ng/mL (<0.03)
[2020-05-19] MEDS ORDERED: Heparin 5000 UNITS/ML 1 mL VIAL IV SCH (18:00)
[2020-05-19 19:23] LABS: TSH Ultra Thyroid Stim Horm 1.46 mcIU/mL (0.34-5.60)
[2020-05-20 06:08] LABS: ABS Basophils 0.1 10^3/ul (0-0.2); ABS Lymphocytes 2.2 10^3/ul (1.0-4.8); ABS Monocytes 0.8 10^3/ul (0-0.8); ABS Neutrophils 7.1 10^3/ul (1.5-7.7); Eosinophil % 0.4 %; Hematocrit 31 % (42-52); Lymphocyte % 21.4 %; Mean Corpuscular HGB Conc 35 g/dL (31-36); Mean Corpuscular Hemoglobin 30 pg (27-31); Mean Corpuscular Volume 85 fL (80-94); Mean Platelet Volume 7.4 fL (7.4-10.4); Nucleated Red Blood Cells % 0.1; Platelet Count 376 10^3/uL (150-450); Red Cell Distribution Width 14 % (10-15); White Blood Count 10.3 10^3/uL (3.5-10.8)
[2020-05-20 06:24] LABS: Anion Gap 8 mmol/L (2-11); BUN/Creatinine Ratio 16.4 (8-20); Blood Urea Nitrogen 18 mg/dL (6-24); CO2 Carbon Dioxide 23 mmol/L (22-32); Calcium 9.1 mg/dL (8.6-10.3); Chloride 106 mmol/L (101-111); EGFR African American 76.8 (>60); EGFR Non-African American 63.5 (>60); Glucose 126 mg/dL (70-100); Sodium 137 mmol/L (135-145)
[2020-05-20] MEDS ORDERED: Perflutren Lipid Microsphere 3 ML VIAL ONE (10:21)
[2020-05-20 11:24] LABS: Troponin I 2.71 ng/mL (<0.03)
[2020-05-20] MEDS ORDERED: Nitroglycerin 0.1 mg/hr PATCH (2.5 mg) TRANSDERM SCH (15:00)
[2020-05-20] MEDS ORDERED: Furosemide 40 mg/4 ml IV VIAL IV ONE (17:00)
[2020-05-20] MEDS: Nitroglycerin 0.1 mg/hr PATCH (2.5 mg) TRANSDERM SCH (18:09)
[2020-05-21] MEDS: Nitro Patch/OINT Remove PATCH PATCH OFF SCH ×2 (00:01→19:46)
[2020-05-21] MEDS: Nitroglycerin 0.1 mg/hr PATCH (2.5 mg) TRANSDERM SCH (09:55)
[2020-05-21 15:51] VITALS: BP 97/53
[2020-05-22] MEDS ORDERED: guaiFENesin/CODIENE 100mg/10mg 5 ML UDC PO ONE (09:37)
[2020-05-22] MEDS: Nitroglycerin 0.1 mg/hr PATCH (2.5 mg) TRANSDERM SCH (09:48)
== END 2020-05-22 13:38 | DRG 280 ==
LOC: ED 13:18 → MEDTELE 17:46
PROVIDERS: ADMIT Internal Medicine; ATTEND Internal Medicine